=== PATIENT | female | born 1950 | race Caucasian/White ===

== ENCOUNTER 2019-11-06 14:39 | Outpatient (CLI) | payer MEDICARE, OTHER, SELFPAY ==
--- NOTE | 2019-11-06 14:49 | XR_ITS ---
WS: [id number] XR chest 2V* 31102 REASON FOR EXAM: COUGH FINDINGS: A calcified granuloma seen in the left upper lung. The lung torres are mildly hypoaerated. There is no pneumonia, pleural effusion, atelectasis, mass effect, or pulmonary edema. The hilum and apices normal. XR/XR chest 2V* 11378 IMPRESSION: No active cardiopulmonary changes.
== END 2019-11-06 14:40 | disposition home or self-care (01) ==
LOC: RAD 14:43
PROVIDERS: Family Provider Family Medicine; PCP Family Medicine; Visit Provider Family Medicine
DX: J84.10 Pulmonary fibrosis, unspecified (principal); R05 Cough
CPT/HCPCS: 71046